=== PATIENT | female | born 2000 | race Hispanic/Latino ===

== ENCOUNTER 2023-02-01 21:14 | Emergency (ER) | payer MEDICAID ==
[~2023-02-01] VITALS: Ht 147.3 cm; Wt 59.0 kg
[2023-02-01 21:16] VITALS: BP 120/57
[2023-02-01 22:38] LABS: APPEARANCE,URINE CLOUDY (CLEAR); BILIRUBIN,URINE NEGATIVE (NEGATIVE); COLOR,URINE YELLOW (YELLOW); GLUCOSE, URINE (UA) NEGATIVE (NEGATIVE); KETONES,URINE 10 mg/dL (NEGATIVE); LEUKOCYTE ESTERASE ,URINE 75 Leu/uL (NEGATIVE); NITRATE,URINE NEGATIVE (NEGATIVE); OCCULT BLOOD,URINE NEGATIVE (NEGATIVE); PH,URINE 5.5 (5.0-8.0); PROTEIN,URINE 10 mg/dL (NEGATIVE); UROBILINOGEN,URINE 0.2 mg/dL (0.2-1.0)
[2023-02-01] MEDS ORDERED: CEPH500B PO (22:45)
[2023-02-01 23:02] LABS: MUCUS,URINE RARE LPF (None Seen); SQUAMOUS EPITHELIAL CELL,UR MOD /HPF (0-2)
== END 2023-02-01 23:01 | disposition home or self-care (01) ==
LOC: EDH 21:14
DX: O26.892 Other specified pregnancy related conditions, second trimester (principal); N75.0 Cyst of Bartholin's gland; Z3A.16 16 weeks gestation of pregnancy
CPT/HCPCS: 81001; 87088